=== PATIENT | female | born 1995 | race Caucasian/White ===

== ENCOUNTER 2024-05-20 19:21 | Emergency (ER) | payer OTHER, SELFPAY ==
[2024-05-20 19:24] VITALS: BP 119/76
[2024-05-20 19:45] LABS: % Basophils 0.2 % (0-2); % Eosinophils 0.1 % (0-6); % Immature Granulocytes 0.3 % (0-0.5); % Lymphocytes 18.2 % (20.5-51.1); % Monocytes 9.2 % (1.7-9.3); Absolute Lymphocytes 2.4 10^3/uL (1.2-3.4); Absolute Monocytes 1.2 10^3/uL (0.1-0.6); Absolute Neutrophils 9.7 10^3/uL (1.4-6.5); Hematocrit 44.7 % (37.0-47.0); Mean Corp Hgb Conc. 35.8 g/dL (33.0-37.0); Mean Corpuscular Hgb 30.7 pg (27.0-31.0); Mean Corpuscular Volume 85.6 fL (81.0-99.0); Mean Platelet Volume 9.8 fL (7.4-10.4); Nucleated Red Blood Cells % 0 %; Platelet Count 268 10^3/uL (130-400); Red Blood Cell Count 5.22 10^6/uL (4.20-5.40); Red Cell Dist. Width 13.2 % (11.5-14.5); White Blood Cell Count 13.4 10^3/uL (4.8-10.8)
[2024-05-20 19:48] LABS: HCG, Serum Qualitative Screen Positive
[2024-05-20 19:52] LABS: ALT (SGPT) 42 U/L (0-35); AST (SGOT) 28 U/L (14-36); Albumin 5.2 g/dl (3.5-5.0); Alkaline Phosphatase 54 U/L (38-126); Blood Urea Nitrogen 14 mg/dl (7-17); Calcium 10.1 mg/dl (8.4-10.2); Carbon Dioxide 22 mmol/L (22-30); Chloride 98 mmol/L (98-107); Glucose 121 mg/dl (70-99); Lipase 50 U/L (23-300); Potassium 3.8 mmol/L (3.5-5.1); Sodium 135 mmol/L (135-145); Total Bilirubin 1.3 mg/dl (0.2-1.3); Total Protein 8.4 g/dl (6.3-8.2); eGFR > 60.00
[2024-05-20 19:54] LABS: COVID-19 Antigen Negative (Negative)
[2024-05-20 21:16] VITALS: BP 108/54
[2024-05-20 21:17] VITALS: BMI 34.4
--- NOTE | 2024-05-20 21:19 | ED.GENMED ---
History of Present Illness
General
Chief Complaint: Headache
Source: patient
Exam Limitations: none
Time Seen by Provider: 05/20/24 21:01
Nursing documentation reviewed up to this point in time: agreed with
History of Present Illness
History of Present Illness:
This is a 29-year-old woman who has history of migraine headaches, generally occur 2-3 times per year. She complains of her typical migraine headache that began yesterday morning, Temporized with Imitrex for which she took twice yesterday but has
returned and no significant relief after an additional dose of Imitrex today.
She also notes intermittent nausea, dry heaves. She has not had a fever nor chills. She does note photophobia. Current headache is typical of her migraine headaches. No weakness nor numbness.
She is concern for possible , first day of last menstrual period was April 04, 2024. Menses are generally monthly, regular.
She has history of 1 previous early 2022. That ended in an early miscarriage.
She also has history of ovarian cyst with previous Left ovarian dermoid cyst removal 2011. She has noted some left lower quadrant pain over the past several days to perhaps a week or 2, concerned that her left ovarian cyst has been 'acting up' She
has had no vaginal discharge, no bleeding. No dysuria and urgency and or hematuria, no back pain or flank pain.
She has however had some intermittent epigastric abdominal discomfort and some upper abdominal bloating that has been ongoing over the past month or so, upper abdominal pain seems worse with meals. Upper abdominal pain has not been associated with
chest pain, no back pain, no nausea nor vomiting.
Her only daily medication is Zyrtec.
Past History
Past History
ED Past Medical History: Psychiatric (Depression and anxiety. Takes Citalopram.), Other (ovarian cysts/dermoid cyst-tumor removal 2011) and Other (migraine headache)
ED Past Surgical History: Other ([place] teeth, ovarian cyst removal)
Social History
Tobacco: Smoker
Alcohol: None
Drug: None
Personal: Single
Living: with family
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
Family History
Family History: Other (Noncontributory)
Phy Exam
Physical Exam
Physical Exam:
GENERAL: 29-year-old female appears her stated age, awake and alert, pleasant, easily communicative and in no acute distress. Wearing dark sunglasses.
EYE: anicteric
NECK: Supple, nontender, no meningismus, no significant adenopathy.
ENT: oral mucosa is moist. No rhinorrhea.
CARDIAC: Regular rate and rhythm. no murmur.
LUNGS: Clear breath sounds bilaterally, no acute respiratory distress, no wheezes/rales/rhonchi
ABDOMEN: Soft, nondistended, Mild tenderness epigastric region as well as mild tenderness left lower quadrant. No palpable masses. no r/g, no cvat. normoactive BS.
NEUROLOGICAL: Alert and oriented x3, no focal neuro deficits. Gait is red and steady.
SKIN: Warm and dry, normal color, skin intact. No rash.
MUSCULOSKELETAL: No C/C/E. peripheral pulses are full and equal b/l. No palpable tenderness.
PSYCH: Normal and appropriate interaction.
Course
Orders/Labs/Results
Orders:
Orders
05/20/24 19:28
Test Result ONCE
05/20/24 19:33
Beta HCG Quantitative Urgent
Is this a screen?: No
Comment: ADDON
COVID-19 Antigen Urgent
Source: Nasal Swab
Complete Blood Count/With Diff Urgent
Comprehensive Metabolic Panel Urgent
HCG, Serum Qualitative Screen Urgent
Lipase Urgent
Influenza A+B Rapid Molecular Urgent
[place] Source: Nasal Swab
Specimen Description:
05/20/24 19:50
Add On- LAB Urgent
Tests Added?: beta hcg
05/20/24 21:16
US 1st Trimester Urgent
Comment:
Reason For Exam: LLQ pain, LMP 04/04/24 (+)HCG
05/20/24 21:17
US Abdomen Complete/Upper Urgent
Comment:
Reason For Exam: epigastric abd pain w Nausea
05/20/24 21:18
0.9% Sodium Chloride 1000 ml [Nss] 1,000 ml IV BOLUS
Diphenhydramine [Benadryl] 25 mg IV NOW STA
Prochlorperazine [Compazine] 10 mg IV NOW STA
Abnormal Lab Results
05/20/24
19:33
WBC 13.4 H 10^3/uL
(4.8-10.8)
Absolute Neuts (auto) 9.7 H 10^3/uL
(1.4-6.5)
Absolute Monos (auto) 1.2 H 10^3/uL
(0.1-0.6)
Lymphocytes % 18.2 L %
(20.5-51.1)
Glucose 121 H mg/dl
(70-99)
ALT 42 H U/L
(0-35)
Total Protein 8.4 H g/dl
(6.3-8.2)
Albumin 5.2 H g/dl
(3.5-5.0)
05/20/24 19:33
05/20/24 19:33
Vital Signs
Initial and Last Documented VS:
Initial Vital Signs
Temp Pulse Resp BP Pulse Ox
98.1 F 96 16 119/76 97
05/20/24 19:24 05/20/24 19:24 05/20/24 19:24 05/20/24 19:24 05/20/24 19:24
Last Documented Vital Signs
Temp Pulse Resp BP Pulse Ox
98.1 F 64 18 108/54 98
05/20/24 19:24 05/20/24 21:19 05/20/24 21:19 05/20/24 21:16 02/16/25 23:44
MDM/Problems Addressed
Differential Diagnosis Includes:
Patient presents with migraine headache, typical of previous migraines. No focal neurodeficits, afebrile and no reported fever. Nothing to suggest meningitis nor CVA.
She also notes some epigastric discomfort over the past several days to perhaps week or 2, intermittent left lower quadrant pain as well as concern for early with a last menstrual period April 04.
Concern for biliary colic, gastritis, pancreatitis. Concern for ectopic , ovarian cyst, ovarian torsion.
Labs thus far remarkable for positive qualitative hCG. Quant is pending. Mildly elevated white blood cell count of 13.4. Chemistries are unremarkable save for minimally elevated ALT of 42. All other LFTs within normal limits. Lipase is normal.
Will initiate IV fluids and give IV dose of Compazine for migraine headache along with IV Benadryl. Will plan for abdominal ultrasound assess for cholelithiasis/cholecystitis and will check pelvic ultrasound assess for IUP, ectopic , left
ovarian pathology.
*Radiology
Radiology exam reviewed: radiology read reviewed (Abdominal ultrasound shows no acute findings. Pelvic ultrasound shows single IUP 6 weeks 3 days. heart rate 156. Small subchorionic hemorrhage. Possible small corpus luteum in the left
ovary. Otherwise ovaries appear normal with Doppler blood flow demonstrated bilaterally.)
*Pulse Oximetry
Patient hypoxic: no
*Critical Care Note
Total Time (30-74mins, 75-104mins- exclusive of procedures): Not Applicable
Update Note
Update Note:
00:30
Patient reports complete relief of headache after IV fluids and IV Compazine. Resting comfortably. No further nausea.
Abdomen is soft without appreciable tenderness.
Abdominal ultrasound is unremarkable.
Pelvic ultrasound reveals single IUP at 6 weeks 3 days. Corpus luteal left ovary otherwise bilateral ovaries are normal size, good flow bilaterally.
Recommend bland diet. Encourage clear liquids.
Prompt follow-up with [facility] for recheck.
ED Attending Note
-
Portions of this chart may have been created with voice recognition software.� Occasional wrong word or��sound alike� substitutions may have occurred due to the inherent limitations of voice recognition software.
Discharge Plan
Departure
Patient Disposition: Home (Routine Discharge)
Date of Disposition: 05/21/24
Time of Disposition: 00:32
Patient with high blood pressure during this ER visit?: No
Condition: Good
Discharge Problem:
Headache, migraine, First trimester
Instructions: Clear Liquid Diet, Migraine in adults, Stomach Pain in Early
Prescriptions:
No Action
loratadine [Claritin] 10 mg Tablet
10 mg PO DAILY
Referrals:
NONE,* [Family Provider] -
Activity Restrictions/Additional Instructions:
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
For nausea you can try taking [id number] vitamin B6 (10 to 25 mg) 3 times a day along with doxylamine (Unisom) 25 mg at bedtime.
For constipation try a fiber supplement such as Metamucil or Benefiber daily.
Interventions
Interventions:
*Risk Screen - Suicide Last Done: 05/20/24 21:53
*General Assessment Last Done: 05/20/24 21:53
*Neglect/Abuse Screening Last Done: 05/20/24 21:53
ED- Fall Risk Assessment Last Done: 05/20/24 21:54
*ED COVID-19 Vaccine History Last Done: 05/20/24 21:52
LR-Hxmvju-Sbemsqrxji Assessment Last Done: 05/20/24 21:54
ED- Neurological Assessment Last Done: 05/20/24 21:54
Discharge Date and Time
Print Language: TAJIK
[2024-05-20] MEDS: NSS 1000 IV (21:29)
[2024-05-20] MEDS: COMPAZINE 10 MG IV (21:30)
[2024-05-20] MEDS: BENADRYL 25 MG IV (21:30)
[2024-05-20 23:43] VITALS: BP 123/80
[2024-05-21] VITALS: BP 115/75
== END 2024-05-21 00:48 | disposition home or self-care (01) ==
LOC: EMR 19:21
PROVIDERS: Student in an Organized Health Care Education/Training Program; EMERGENCY PHYSICIAN Emergency Medicine
DX: O99.351 Diseases of the nervous system complicating pregnancy, first trimester (principal); G43.909 Migraine, unspecified, not intractable, without status migrainosus; O99.331 Smoking (tobacco) complicating pregnancy, first trimester; F17.200 Nicotine dependence, unspecified, uncomplicated; O99.891 Other specified diseases and conditions complicating pregnancy; R10.32 Left lower quadrant pain; Z3A.01 Less than 8 weeks gestation of pregnancy
CPT/HCPCS: 96374; 96375; 96361; 99284; 76700; 76801; 80053; 83690; 84702; 84703; 85025; 87502; 87811